=== PATIENT | male | born 1970 | race Caucasian/White ===

== ENCOUNTER 2016-09-21 14:43 | Inpatient (IN) | payer SELFPAY ==
[~2016-09-21] VITALS: Ht 182.9 cm; Wt 113.4 kg
[2016-09-21 14:45] VITALS: BP 115/71
[2016-09-21] MEDS ORDERED: Naloxone 1mg/ml 2ml IVP ONE (15:00)
[2016-09-21 15:15] LABS: BASOPHILS % (AUTO) 1.6 % (0.0-2.0); EOSINOPHILS % (AUTO) 1.8 % (0.0-3.0); LYMPHOCYTES % (AUTO) 52.7 % (20.0-45.0); MEAN CORPUSCULAR HEMOGLOBIN 30.8 PG (27.0-31.0); MEAN CORPUSCULAR HGB CONC 33.1 G/DL (32.0-36.0); MEAN CORPUSCULAR VOLUME 93 FL (80-99); MEAN PLATELET VOLUME 7.9 FL (6.5-10.1); MONOCYTES % (AUTO) 9.4 % (1.0-10.0); NEUTROPHILS % (AUTO) 34.4 % (45.0-75.0); PLATELET COUNT 300 K/UL (150-450); RED BLOOD COUNT 5.31 M/UL (4.70-6.10); RED CELL DISTRIBUTION WIDTH 11.2 % (11.6-14.8); WHITE BLOOD COUNT 5.7 K/UL (4.8-10.8)
[2016-09-21 15:24] LABS: ACETAMINOPHEN < 10 ug/mL (10-30); ALANINE AMINOTRANSFERASE 25 U/L (3-41); ALBUMIN/GLOBULIN RATIO 1.5 (1.0-2.7); ALCOHOL < 10 mg/dL; ANION GAP 12 (5-15); ASPARTATE AMINO TRANSFERASE 16 U/L (5-40); CALCIUM 9.3 mg/dL (8.6-10.2); CARBON DIOXIDE 28 mEQ/L (20-30); CHLORIDE 98 mEQ/L (98-107); CREATININE 1.4 mg/dL (0.7-1.2); GLOMERULAR FILTRATION RATE 55.1 mL/min (>60); HEMOLYSIS 6; POTASSIUM 3.7 mEQ/L (3.4-4.9); SODIUM 138 mEQ/L (135-145); TOTAL PROTEIN 7.3 g/dL (6.6-8.7); TROPONIN I < 0.30 ng/mL (<=0.30)
[2016-09-21 15:34] LABS: APPEARANCE,URINE CLEAR; KETONES,URINE NEGATIVE (NEGATIVE); LEUKOCYTE ESTERASE ,URINE 1+ (NEGATIVE); NITRITE,URINE NEGATIVE (NEGATIVE); PH,URINE 6 (4.5-8.0); PROTEIN,URINE NEGATIVE (NEGATIVE); UROBILINOGEN,URINE NORMAL MG/DL (0.0-1.0)
[2016-09-21 15:43] LABS: RBC,URINE 0-2 /HPF (0 - 0)
[2016-09-21 15:44] LABS: BACTERIA,URINE FEW /HPF; WBC,URINE 0-2 /HPF (0 - 0)
[2016-09-21 16:00] VITALS: BP 102/59
[2016-09-21] MEDS ORDERED: LORazepam Inj 2mg/ml 1ml IV PRN (16:15)
[2016-09-21] MEDS ORDERED: Mylanta II UD 30ml ORAL PRN (16:15)
[2016-09-21] MEDS ORDERED: Morphine Sulfate 2mg/ml Inj IVP PRN (16:15)
--- NOTE | 2016-09-21 16:16 | Emergency Room Report ---
History of Present Illness General Chief Complaint: Altered Level of Consciousness Source: Patient, EMS Present Illness HPI This patient was brought in by EMS. Early this morning around 4 AM he took 10 Seroquel tablets and 2 Klonopin tablets. He was attempting suicide. He is sleepy but is able to answer basic questions. He has no other complaints. He denies any other ingestions. Allergies: Coded Allergies: No Known Allergies (Unverified , 09/21/16) Patient History Past Medical History: see triage record, psych hx Social History: Denies: alcohol use, drug use, smoking Reviewed Nursing Documentation: PMH: Agreed, PSxH: Agreed Nursing Documentation-PMH Past Medical History: No History, Except For History Of Psychiatric Problem: Yes Review of Systems All Other Systems: negative except mentioned in HPI Physical Exam Vital Signs Date Time Temp Pulse Resp B/P Pulse Ox O2 Delivery O2 Flow Rate FiO2 09/21/16 14:30 148 16 142/88 98 Room Air 09/21/16 14:45 2.0 Sp02 EP Interpretation: reviewed, normal General Appearance: no apparent distress, GCS 15, non-toxic, other - Sleepy Head: normocephalic, atraumatic Eyes: bilateral eye PERRL, bilateral eye normal inspection ENT: hearing grossly normal, normal pharynx, no angioedema, normal voice Neck: full range of motion, supple/symm/no masses Respiratory: chest non-tender, lungs clear, normal breath sounds, no respiratory distress, no retraction, no accessory muscle use, speaking full sentences Cardiovascular #1: regular rate, rhythm, no edema Gastrointestinal: normal bowel sounds, non tender, soft, non-distended, no guarding, no rebound Rectal: deferred Musculoskeletal: back normal, normal range of motion, non-tender Neurologic: alert, oriented x3, responsive, motor strength/tone normal, sensory intact, speech normal, other - sleepy Psychiatric: other - Suicide attempt Skin: normal color, no rash, warm/dry, well hydrated Medical Decision Making Diagnostic Impression: Primary Impression: Overdose Additional Impressions: Altered level of consciousness Suicide attempt by multiple drug overdose ER Course Patient presents with suicide attempt status post overdosed with Seroquel and lorazepam. The patient was sleepy but arousable and able to answer basic questions. He was maintaining his airway and mental status. Therefore, I did not feel this patient needed to be intubated. I did give the patient Narcan and there was no response. The patient's urine drug screen was positive for amphetamines. Regardless, the patient is sleepy and will need to be admitted on telemetry and until his mental status is alert and on to undergo psychiatric evaluation. The patient is admitted for further evaluation and treatment. Labs Test 09/21/16 14:45 09/21/16 15:00 White Blood Count 5.7 K/UL (4.8-10.8) Red Blood Count 5.31 M/UL (4.70-6.10) Hemoglobin 16.4 G/DL (14.2-18.0) Hematocrit 49.4 % (42.0-52.0) Mean Corpuscular Volume 93 FL (80-99) Mean Corpuscular Hemoglobin 30.8 PG (27.0-31.0) Mean Corpuscular Hemoglobin Concent 33.1 G/DL (32.0-36.0) Red Cell Distribution Width 11.2 % (11.6-14.8) Platelet Count 300 K/UL (150-450) Mean Platelet Volume 7.9 FL (6.5-10.1) Neutrophils (%) (Auto) 34.4 % (45.0-75.0) Lymphocytes (%) (Auto) 52.7 % (20.0-45.0) Monocytes (%) (Auto) 9.4 % (1.0-10.0) Eosinophils (%) (Auto) 1.8 % (0.0-3.0) Basophils (%) (Auto) 1.6 % (0.0-2.0) Sodium Level 138 mEQ/L (135-145) Potassium Level 3.7 mEQ/L (3.4-4.9) Chloride Level 98 mEQ/L (98-107) Carbon Dioxide Level 28 mEQ/L (20-30) Anion Gap 12 (5-15) Blood Urea Nitrogen 14 mg/dL (7-23) Creatinine 1.4 mg/dL (0.7-1.2) Estimat Glomerular Filtration Rate 55.1 mL/min (>60) Glucose Level 145 mg/dL (74-106) Lactic Acid Level 1.70 mmol/L (0.66-2.22) Calcium Level 9.3 mg/dL (8.6-10.2) Total Bilirubin 0.5 mg/dL (0.0-1.2) Aspartate Amino Transf (AST/SGOT) 16 U/L (5-40) Alanine Aminotransferase (ALT/SGPT) 25 U/L (3-41) Alkaline Phosphatase 70 U/L (40-129) Troponin I < 0.30 ng/mL (<=0.30) Total Protein 7.3 g/dL (6.6-8.7) Albumin 4.4 g/dL (3.5-5.2) Globulin 2.9 g/dL Albumin/Globulin Ratio 1.5 (1.0-2.7) Thyroid Stimulating Hormone (TSH) 3.540 uIU/mL (0.300-4.500) Salicylates Level < 1 mg/dL (10-30) Acetaminophen Level < 10 ug/mL (10-30) Serum Alcohol < 10 mg/dL Urine Color Pale yellow Urine Appearance Clear Urine pH 6 (4.5-8.0) Urine Specific [place] 1.005 (1.005-1.035) Urine Protein Negative (NEGATIVE) Urine Glucose (UA) Negative (NEGATIVE) Urine Ketones Negative (NEGATIVE) Urine Occult Blood Negative (NEGATIVE) Urine Nitrite Negative (NEGATIVE) Urine Bilirubin Negative (NEGATIVE) Urine Urobilinogen Normal MG/DL (0.0-1.0) Urine Leukocyte Esterase 1+ (NEGATIVE) Urine RBC 0-2 /HPF (0 - 0) Urine WBC 0-2 /HPF (0 - 0) Urine Squamous Epithelial Cells None /LPF (NONE/OCC) Urine Bacteria Few /HPF (NONE) Urine Opiates Screen Negative (NEGATIVE) Urine Barbiturates Screen Negative (NEGATIVE) Phencyclidine (PCP) Screen Negative (NEGATIVE) Urine Amphetamines Screen Positive (NEGATIVE) Urine Benzodiazepines Screen Negative (NEGATIVE) Urine Cocaine Screen Negative (NEGATIVE) Urine Marijuana (THC) Screen Negative (NEGATIVE) EKG Diagnostic Results Rate: tachycardiac Rhythm: other ST Segments: no acute changes Other Impression S.tachycardia Rhythm Strip Diag. Results EP Interpretation: yes Rate: 100's Rhythm: no PVC's, no ectopy, other Other Impression S.tachycardia Last Vital Signs Date Time Temp Pulse Resp B/P Pulse Ox O2 Delivery O2 Flow Rate FiO2 09/21/16 14:45 111 12 115/71 96 Nasal Cannula 2.0 Disposition: ADMITTED INPATIENT Condition: Serious Referrals: NOT CHOSEN IPA/MD,REFERRING (PCP) DAHIANA RAZA D.O. Sep 21, 2016 16:16
[2016-09-21] MEDS ORDERED: UNOBMED (16:50)
[2016-09-21 18:00] VITALS: BP 109/66
[2016-09-21 20:00] VITALS: BP 118/73
[2016-09-21] MEDS ORDERED: Miralax 17gm pkt ORAL PRN (21:00)
[2016-09-21] MEDS ORDERED: Zolpidem 5mg tab ORAL PRN (21:00)
[2016-09-22 06:29] LABS: BASOPHILS % (AUTO) 0.7 % (0.0-2.0); EOSINOPHILS % (AUTO) 0.5 % (0.0-3.0); LYMPHOCYTES % (AUTO) 16.2 % (20.0-45.0); MEAN CORPUSCULAR HEMOGLOBIN 31.6 PG (27.0-31.0); MEAN CORPUSCULAR HGB CONC 33.1 G/DL (32.0-36.0); MEAN CORPUSCULAR VOLUME 96 FL (80-99); MEAN PLATELET VOLUME 7.6 FL (6.5-10.1); MONOCYTES % (AUTO) 6.5 % (1.0-10.0); NEUTROPHILS % (AUTO) 76.1 % (45.0-75.0); PLATELET COUNT 245 K/UL (150-450); RED BLOOD COUNT 4.85 M/UL (4.70-6.10); RED CELL DISTRIBUTION WIDTH 11.5 % (11.6-14.8); WHITE BLOOD COUNT 12.2 K/UL (4.8-10.8)
[2016-09-22 08:00] VITALS: BP 120/69
[2016-09-22 08:16] LABS: ALANINE AMINOTRANSFERASE 20 U/L (3-41); ALBUMIN/GLOBULIN RATIO 1.5 (1.0-2.7); ANION GAP 9 (5-15); ASPARTATE AMINO TRANSFERASE 15 U/L (5-40); CALCIUM 9.3 mg/dL (8.6-10.2); CARBON DIOXIDE 30 mEQ/L (20-30); CHLORIDE 106 mEQ/L (98-107); CHOLESTEROL 215 mg/dL (< 200); CHOLESTEROL/HDL RATIO 5.8 (3.3-4.4); CREATININE 1.2 mg/dL (0.7-1.2); GLOMERULAR FILTRATION RATE > 60 mL/min (>60); HEMOLYSIS 13; LDL CHOLESTEROL (CALC.) 144 mg/dL (60-99); POTASSIUM 4.6 mEQ/L (3.4-4.9); SODIUM 145 mEQ/L (135-145); TOTAL PROTEIN 6.6 g/dL (6.6-8.7)
[2016-09-22 08:18] LABS: THYROID STIMULATING HORMONE 0.979 uIU/mL (0.300-4.500)
--- NOTE | 2016-09-22 11:34 | History and Physical ---
History of Present Illness General Date patient seen: Sep 22, 2016 Reason for Hospitalization: Altered Level of Consciousness Present Illness HPI 45 year old patient was brought in by EMS for ALOC, at 4 AM he took 10 Seroquel tablets and 2 Klonopin tablets. He was attempting suicide. He is sleepy but is able to answer basic questions. He has no other complaints. He denies any other ingestions. He was admitted to telemetry for further evaluation. Allergies: Coded Allergies: No Known Allergies (Unverified , 09/21/16) Medication History Miscellaneous Medications Unable to Obtain Medications (Unable To Obtain Meds), (Reported) Patient History Healthcare decision maker Resuscitation status Full Code Advanced Directive on File Past Medical/Surgical History Past Medical/Surgical History: (1) Depression Review of Systems All Other Systems: negative except mentioned in HPI Physical Exam General Appearance: WD/WN Lines, tubes and drains: peripheral, central line HEENT: normocephalic, atraumatic Neck: non-tender, normal alignment Respiratory/Chest: chest wall non-tender, lungs clear Cardiovascular/Chest: normal peripheral pulses Abdomen: normal bowel sounds Genitourinary/Rectal: normal genital exam Extremities: normal range of motion Last 24 Hour Vital Signs Date Time Temp Pulse Resp B/P Pulse Ox O2 Delivery O2 Flow Rate FiO2 09/22/16 08:05 91 09/22/16 08:00 97.7 97 20 120/69 98 Nasal Cannula 2.0 09/22/16 05:45 76 09/21/16 20:00 96.3 119 16 118/73 99 Nasal Cannula 2.0 09/21/16 18:34 80 12 109/66 99 Nasal Cannula 2.0 09/21/16 18:00 80 12 109/66 99 Nasal Cannula 2.0 09/21/16 16:00 97 12 102/59 96 Nasal Cannula 2.0 09/21/16 14:45 111 12 115/71 96 Nasal Cannula 2.0 09/21/16 14:30 148 16 142/88 98 Room Air Intake and Output 09/21/16 09/22/16 19:00 07:00 Intake Total 2000 ml 0 ml Output Total 400 ml 700 ml Balance 1600 ml -700 ml Intake Oral 0 ml 0 ml IV Total 2000 ml Output Urine Total 400 ml Other 700 ml Laboratory Tests Test 09/21/16 14:45 09/21/16 15:00 09/22/16 04:30 White Blood Count 5.7 K/UL (4.8-10.8) 12.2 K/UL (4.8-10.8) #H Red Blood Count 5.31 M/UL (4.70-6.10) 4.85 M/UL (4.70-6.10) Hemoglobin 16.4 G/DL (14.2-18.0) 15.4 G/DL (14.2-18.0) Hematocrit 49.4 % (42.0-52.0) 46.4 % (42.0-52.0) Mean Corpuscular Volume 93 FL (80-99) 96 FL (80-99) Mean Corpuscular Hemoglobin 30.8 PG (27.0-31.0) 31.6 PG (27.0-31.0) H Mean Corpuscular Hemoglobin Concent 33.1 G/DL (32.0-36.0) 33.1 G/DL (32.0-36.0) Red Cell Distribution Width 11.2 % (11.6-14.8) L 11.5 % (11.6-14.8) L Platelet Count 300 K/UL (150-450) 245 K/UL (150-450) Mean Platelet Volume 7.9 FL (6.5-10.1) 7.6 FL (6.5-10.1) Neutrophils (%) (Auto) 34.4 % (45.0-75.0) L 76.1 % (45.0-75.0) H Lymphocytes (%) (Auto) 52.7 % (20.0-45.0) H 16.2 % (20.0-45.0) L Monocytes (%) (Auto) 9.4 % (1.0-10.0) 6.5 % (1.0-10.0) Eosinophils (%) (Auto) 1.8 % (0.0-3.0) 0.5 % (0.0-3.0) Basophils (%) (Auto) 1.6 % (0.0-2.0) 0.7 % (0.0-2.0) Sodium Level 138 mEQ/L (135-145) 145 mEQ/L (135-145) Potassium Level 3.7 mEQ/L (3.4-4.9) 4.6 mEQ/L (3.4-4.9) Chloride Level 98 mEQ/L (98-107) 106 mEQ/L (98-107) Carbon Dioxide Level 28 mEQ/L (20-30) 30 mEQ/L (20-30) Anion Gap 12 (5-15) 9 (5-15) Blood Urea Nitrogen 14 mg/dL (7-23) 13 mg/dL (7-23) Creatinine 1.4 mg/dL (0.7-1.2) H 1.2 mg/dL (0.7-1.2) Estimat Glomerular Filtration Rate 55.1 mL/min (>60) > 60 mL/min (>60) Glucose Level 145 mg/dL (74-106) H 82 mg/dL (74-106) Lactic Acid Level 1.70 mmol/L (0.66-2.22) Calcium Level 9.3 mg/dL (8.6-10.2) 9.3 mg/dL (8.6-10.2) Total Bilirubin 0.5 mg/dL (0.0-1.2) 0.6 mg/dL (0.0-1.2) Aspartate Amino Transf (AST/SGOT) 16 U/L (5-40) 15 U/L (5-40) Alanine Aminotransferase (ALT/SGPT) 25 U/L (3-41) 20 U/L (3-41) Alkaline Phosphatase 70 U/L (40-129) 67 U/L (40-129) Troponin I < 0.30 ng/mL (<=0.30) Total Protein 7.3 g/dL (6.6-8.7) 6.6 g/dL (6.6-8.7) Albumin 4.4 g/dL (3.5-5.2) 4.0 g/dL (3.5-5.2) Globulin 2.9 g/dL 2.6 g/dL Albumin/Globulin Ratio 1.5 (1.0-2.7) 1.5 (1.0-2.7) Thyroid Stimulating Hormone (TSH) 3.540 uIU/mL (0.300-4.500) 0.979 uIU/mL (0.300-4.500) Salicylates Level < 1 mg/dL (10-30) L Acetaminophen Level < 10 ug/mL (10-30) L Serum Alcohol < 10 mg/dL Urine Color Pale yellow Urine Appearance Clear Urine pH 6 (4.5-8.0) Urine Specific [place] 1.005 (1.005-1.035) Urine Protein Negative (NEGATIVE) Urine Glucose (UA) Negative (NEGATIVE) Urine Ketones Negative (NEGATIVE) Urine Occult Blood Negative (NEGATIVE) Urine Nitrite Negative (NEGATIVE) Urine Bilirubin Negative (NEGATIVE) Urine Urobilinogen Normal MG/DL (0.0-1.0) Urine Leukocyte Esterase 1+ (NEGATIVE) H Urine RBC 0-2 /HPF (0 - 0) H Urine WBC 0-2 /HPF (0 - 0) Urine Squamous Epithelial Cells None /LPF (NONE/OCC) Urine Bacteria Few /HPF (NONE) Urine Opiates Screen Negative (NEGATIVE) Urine Barbiturates Screen Negative (NEGATIVE) Phencyclidine (PCP) Screen Negative (NEGATIVE) Urine Amphetamines Screen Positive (NEGATIVE) H Urine Benzodiazepines Screen Negative (NEGATIVE) Urine Cocaine Screen Negative (NEGATIVE) Urine Marijuana (THC) Screen Negative (NEGATIVE) Triglycerides Level 168 mg/dL (< 150) H Cholesterol Level 215 mg/dL (< 200) H LDL Cholesterol 144 mg/dL (60-99) H HDL Cholesterol 37 mg/dL (> 60) Cholesterol/HDL Ratio 5.8 (3.3-4.4) H Height (Feet): 6 Height (Inches): 7.00 Weight (Pounds): 250 Medications Current Medications Medications (Trade) Dose Ordered Sig/Casi Route PRN Reason Start Time Stop Time Status Last Admin Dose Admin Acetaminophen (Tylenol) 650 mg Q4H PRN ORAL T>100.5 09/21/16 16:15 10/21/16 16:14 Al Hydroxide/Mg Hydroxide (Mylanta II) 30 ml Q6H PRN ORAL dyspepsia 09/21/16 16:15 10/21/16 16:14 Dextrose (Dextrose 50%) STAT PRN IV Hypoglycemia 09/21/16 16:15 10/21/16 16:14 Lorazepam (Ativan 2mg/ml 1ml) 0.5 mg Q4H PRN IV For Anxiety 09/21/16 16:15 09/28/16 16:14 Morphine Sulfate (Morphine Sulfate) 1 mg Q4H PRN IVP PAIN 4-10 09/21/16 16:15 09/28/16 16:14 Ondansetron HCl (Zofran) 4 mg Q6H PRN IVP Nausea & Vomiting 09/21/16 16:15 10/21/16 16:14 Polyethylene Glycol (Miralax) 17 gm HSPRN PRN ORAL Constipation 09/21/16 21:00 10/21/16 20:59 Zolpidem Tartrate (Ambien) 5 mg HSPRN PRN ORAL Insomnia 09/21/16 21:00 10/21/16 20:59 Assessment/Plan Problem List: (1) Overdose ICD Codes: T50.901A - Poisoning by unspecified drugs, medicaments and biological substances, accidental (unintentional), initial encounter SNOMED: 44993380 (2) Depression ICD Codes: F32.9 - Major depressive disorder, single episode, unspecified SNOMED: 13873762 (3) Suicide attempt by multiple drug overdose ICD Codes: T50.902A - Poisoning by unspecified drugs, medicaments and biological substances, intentional self-harm, initialencounter SNOMED: 15436404 Assessment/Plan psych evaluation iv fluids sitter med/surg. OTONIEL HO Sep 22, 2016 11:34
[2016-09-22 12:00] VITALS: BP 91/52
[2016-09-22 16:00] VITALS: BP 95/57
--- NOTE | 2016-09-22 16:58 | Consultation ---
History of Present Illness General Chief Complaint: Altered Level of Consciousness Present Illness HPI 45 yo with hx of depression, and anxiety disorder. S/p SA took an overdose of his meds. Target sxs depressed mood, anhedonia, worthlessness, hopeless. pt's brother was bedside him. his plan was to put a plastic bag on his head an tie it with rope after he became drowsier. His ex barged in and called the brother who then called 911. 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 Allergies: Coded Allergies: No Known Allergies (Unverified , 09/21/16) Medication History Miscellaneous Medications Unable to Obtain Medications (Unable To Obtain Meds), (Reported) Patient History History Provided By: Patient, Family Member, Medical Record, PMD Healthcare decision maker Resuscitation status Full Code Advanced Directive on File Past Medical/Surgical History Past Medical/Surgical History: (1) Altered level of consciousness (2) Suicide attempt by multiple drug overdose (3) Depression (4) Overdose Review of Systems Psychiatric: Reports: SI, anxiety, depressed feelings, prior hx Physical Exam General Appearance: alert, moderate distress, thin Neurologic: alert, oriented x 3, responsive, depressed affect Last 24 Hour Vital Signs Date Time Temp Pulse Resp B/P Pulse Ox O2 Delivery O2 Flow Rate FiO2 09/22/16 16:00 97.9 77 20 95/57 96 Room Air 09/22/16 12:00 97.5 83 20 91/52 100 Nasal Cannula 2.0 09/22/16 08:05 91 09/22/16 08:00 97.7 97 20 120/69 98 Nasal Cannula 2.0 09/22/16 05:45 76 09/21/16 20:00 96.3 119 16 118/73 99 Nasal Cannula 2.0 09/21/16 18:34 80 12 109/66 99 Nasal Cannula 2.0 09/21/16 18:00 80 12 109/66 99 Nasal Cannula 2.0 Intake and Output 09/21/16 09/22/16 19:00 07:00 Intake Total 2000 ml 0 ml Output Total 400 ml 700 ml Balance 1600 ml -700 ml Intake Oral 0 ml 0 ml IV Total 2000 ml Output Urine Total 400 ml Other 700 ml Laboratory Tests Test 09/22/16 04:30 White Blood Count 12.2 K/UL (4.8-10.8) #H Red Blood Count 4.85 M/UL (4.70-6.10) Hemoglobin 15.4 G/DL (14.2-18.0) Hematocrit 46.4 % (42.0-52.0) Mean Corpuscular Volume 96 FL (80-99) Mean Corpuscular Hemoglobin 31.6 PG (27.0-31.0) H Mean Corpuscular Hemoglobin Concent 33.1 G/DL (32.0-36.0) Red Cell Distribution Width 11.5 % (11.6-14.8) L Platelet Count 245 K/UL (150-450) Mean Platelet Volume 7.6 FL (6.5-10.1) Neutrophils (%) (Auto) 76.1 % (45.0-75.0) H Lymphocytes (%) (Auto) 16.2 % (20.0-45.0) L Monocytes (%) (Auto) 6.5 % (1.0-10.0) Eosinophils (%) (Auto) 0.5 % (0.0-3.0) Basophils (%) (Auto) 0.7 % (0.0-2.0) Sodium Level 145 mEQ/L (135-145) Potassium Level 4.6 mEQ/L (3.4-4.9) Chloride Level 106 mEQ/L (98-107) Carbon Dioxide Level 30 mEQ/L (20-30) Anion Gap 9 (5-15) Blood Urea Nitrogen 13 mg/dL (7-23) Creatinine 1.2 mg/dL (0.7-1.2) Estimat Glomerular Filtration Rate > 60 mL/min (>60) Glucose Level 82 mg/dL (74-106) Calcium Level 9.3 mg/dL (8.6-10.2) Total Bilirubin 0.6 mg/dL (0.0-1.2) Aspartate Amino Transf (AST/SGOT) 15 U/L (5-40) Alanine Aminotransferase (ALT/SGPT) 20 U/L (3-41) Alkaline Phosphatase 67 U/L (40-129) Total Protein 6.6 g/dL (6.6-8.7) Albumin 4.0 g/dL (3.5-5.2) Globulin 2.6 g/dL Albumin/Globulin Ratio 1.5 (1.0-2.7) Triglycerides Level 168 mg/dL (< 150) H Cholesterol Level 215 mg/dL (< 200) H LDL Cholesterol 144 mg/dL (60-99) H HDL Cholesterol 37 mg/dL (> 60) Cholesterol/HDL Ratio 5.8 (3.3-4.4) H Thyroid Stimulating Hormone (TSH) 0.979 uIU/mL (0.300-4.500) Height (Feet): 6 Height (Inches): 7.00 Weight (Pounds): 250 Medications Current Medications Medications (Trade) Dose Ordered Sig/Casi Route PRN Reason Start Time Stop Time Status Last Admin Dose Admin Acetaminophen (Tylenol) 650 mg Q4H PRN ORAL T>100.5 09/21/16 16:15 10/21/16 16:14 Al Hydroxide/Mg Hydroxide (Mylanta II) 30 ml Q6H PRN ORAL dyspepsia 09/21/16 16:15 10/21/16 16:14 Dextrose (Dextrose 50%) STAT PRN IV Hypoglycemia 09/21/16 16:15 10/21/16 16:14 Lorazepam (Ativan 2mg/ml 1ml) 0.5 mg Q4H PRN IV For Anxiety 09/21/16 16:15 09/28/16 16:14 Morphine Sulfate (Morphine Sulfate) 1 mg Q4H PRN IVP PAIN 4-10 09/21/16 16:15 09/28/16 16:14 Ondansetron HCl (Zofran) 4 mg Q6H PRN IVP Nausea & Vomiting 09/21/16 16:15 10/21/16 16:14 Polyethylene Glycol (Miralax) 17 gm HSPRN PRN ORAL Constipation 09/21/16 21:00 10/21/16 20:59 Zolpidem Tartrate (Ambien) 5 mg HSPRN PRN ORAL Insomnia 09/21/16 21:00 10/21/16 20:59 Assessment/Plan Status: not improved Assessment/Plan mdd, borderline od -5150 -transfer to psych -the pt is at imminent dts Kiana Pitt M.D. Sep 22, 2016 16:58
[2016-09-22 18:50] VITALS: BP 99/48
[2016-09-22 19:40] VITALS: BP 110/62
--- NOTE | 2016-09-24 12:38 | Discharge Summary ---
Discharge Summary Hospital Course Date of Admission Sep 21, 2016 at 15:26 Date of Discharge Sep 22, 2016 at 20:50 Admitting Diagnosis overdose HPI Murali Fatima is a 45 year old male who was admitted on Sep 21, 2016 at 15:26 for Overdose Hospital Course [id number] Discharge Discharge Disposition Patient was discharged to Psychiatric Facility (65) Discharge Diagnoses: Mary Ruiz NP Sep 24, 2016 12:38
--- NOTE | 2016-09-24 12:53 | Diagnostic Imaging Report ---
APPROVED REPORT CPT Code: 01383 Present Symptoms Shortness of breath BILATERAL: Imaging reveals a patent deep venous system bilaterally. There is no evidence of thrombus within the femoral, popliteal or tibial segments. The greater saphenous veins are also within normal limits. Doppler indicates normal spontaneous flow within these segments.
--- NOTE | 2016-09-24 16:31 | Discharge Summary 2 SIG ---
DATE OF ADMISSION: 09/21/2016 DATE OF DISCHARGE: 09/22/2016 CONSULTANTS: Kiana Pitt M.D. BRIEF HOSPITAL COURSE: The patient is a 45-year-old male who was brought in by EMS for attempted suicide. The patient took ten Seroquel and two Klonopin tablets. On arrival to the ED, the patient was sleepy, but was arousable and was maintaining his airway. He was given Narcan, but there was no response. Drug screen was positive for amphetamine. Laboratories were unremarkable, however, due to his mental status the patient was admitted to telemetry for further evaluation and treatment. He was seen by Dr. Pitt. The patient had target symptoms of depressed mood and anhedonia, worthlessness and hopelessness. He has a history of borderline personality. He was assessed to be on imminent danger and was placed on 5150 and was eventually transferred to [facility]. DISPOSITION: The patient was transferred to a psychiatric facility. FINAL DIAGNOSES: 1. Overdose. 2. Suicide attempt with multiple drug overdose. 3. Major depressive disorder. 4. Borderline personality disorder. [place] Dolan M.D. I have been assigned to dictate discharge summary on this account and I was not involved in the patient's management. Mary Ruiz N.P. DR: ROBERT JOB#: [id number] CC:
== END 2016-09-22 20:50 | DRG 918 ==
LOC: EDBD 14:43 → EMR 14:50 → 2E 15:26 → EDBEDREQ 18:28 → 2E 09-22 03:13
DX: T43.592A Poisoning by other antipsychotics and neuroleptics, intentional self-harm, initial encounter (principal); I10 Essential (primary) hypertension; T42.4X2A Poisoning by benzodiazepines, intentional self-harm, initial encounter; F41.9 Anxiety disorder, unspecified; F60.3 Borderline personality disorder; F32.9 Major depressive disorder, single episode, unspecified; R40.4 Transient alteration of awareness; Y92.019 Unspecified place in single-family (private) house as the place of occurrence of the external cause
CPT/HCPCS: 36415; 80053; 80061; 80300; 80329; 81003; 82962; 83605; 84443; 84484; 85025; 93005; 93970; J2310